=== PATIENT | female | born 1990 | race African-American/Black ===

== ENCOUNTER 2018-03-01 20:51 | Outpatient (CLI) | payer MEDICAID ==
[2018-03-01 21:30] VITALS: BP 101/58
[2018-03-01 21:41] LABS: MICROSCOPIC NOT IND
[2018-03-01 22:10] LABS: AMPHETAMINE SCREEN, URINE Negative (Negative); BARBITURATE SCREEN, URINE Negative (Negative); BENZODIAZEPINE SCREEN, URINE Negative (Negative); CANNABINOID SCREEN, URINE Positive (Negative); COCAINE SCREEN, URINE Negative (Negative); METHADONE SCREEN, URINE Negative (Negative); OPIATE SCREEN, URINE Negative (Negative)
== END 2018-03-01 21:55 | disposition home or self-care (01) ==
LOC: LDOP 20:51
PROVIDERS: ATTEND Obstetrics & Gynecology
DX: O62.8 Other abnormalities of forces of labor (principal); Z3A.28 28 weeks gestation of pregnancy
CPT/HCPCS: 59025; 80307; 81003; 87086; 87147; 99201; G0463

== ENCOUNTER 2018-03-01 22:13 | Emergency (ER) | payer MEDICAID ==
[~2018-03-01] VITALS: Ht 165.1 cm; Wt 61.7 kg
[2018-03-01 22:20] VITALS: BP 103/69
--- NOTE | 2018-03-04 09:30 | NUR ---
Attempted to contact pt regarding positive urine culture result. Phone number listed in chart was busy, no option to leave message. Pt's chart placed in culture book for further follow up.
== END 2018-03-01 23:56 | disposition home or self-care (01) ==
LOC: ED 23:50
DX: O26.892 Other specified pregnancy related conditions, second trimester (principal); Z3A.26 26 weeks gestation of pregnancy; R05 Cough
CPT/HCPCS: 99283

== ENCOUNTER 2019-07-04 16:10 | Emergency (ER) | payer MEDICAID ==
[~2019-07-04] VITALS: Ht 167.6 cm; Wt 58.2 kg
[2019-07-04 16:12] VITALS: BP 133/77
== END 2019-07-04 16:47 | disposition home or self-care (01) ==
LOC: ED 16:30
DX: N61.0 Mastitis without abscess (principal)
CPT/HCPCS: 99283